=== PATIENT | female | born 1970 | race Caucasian/White ===

== ENCOUNTER 2020-05-14 20:49 | Inpatient (IN) | payer BC ==
[~2020-05-14] VITALS: Ht 165.1 cm; Wt 72.6 kg
[2020-05-14 20:55] VITALS: Ht 165.1 cm; Wt 72.6 kg
[2020-05-14 21:17] LABS: BASOPHIL % 1.1 % (0-2); PLATELET COUNT 344 x10^3mcL (130-400); RED CELL DISTRIBUTION WIDTH 14.4 % (11.5-14.5)
[2020-05-14 21:27] LABS: CALCIUM 8.2 mg/dL (8.5-10.1); CARBON DIOXIDE 24.8 mmol/L (21-32); CHLORIDE SERUM 95 mmol/L (98-107); GFR1 > 60 mL/min; GLUCOSE SERUM 105 mg/dL (74-106); POTASSIUM SERUM 3.6 mmol/L (3.5-5.1); SODIUM SERUM 128 mmol/L (136-145)
[2020-05-14 21:40] LABS: ALBUMIN 3.6 g/dL (3.4-5.0); ALKALINE PHOSPHATASE 62 U/L (46-116); ALT/SGPT 21 U/L (14-59); AST/SGOT 14 U/L (15-37); BILIRUBIN TOTAL 0.31 mg/dL (0.20-1.00); CHOLESTEROL 192 mg/dL (<200); TOTAL PROTEIN, SERUM 6.3 g/dL (6.4-8.2)
[2020-05-14] MEDS ORDERED: CYMBALTA60 M1 (22:30)
[2020-05-14] MEDS ORDERED: ROBAXIN-750750 MG PO (22:30)
[2020-05-14] MEDS ORDERED: NORCO 10-325 T1 EACH PO (22:31)
[2020-05-14] MEDS ORDERED: OXCARBAZEPINE300 M1 (22:32)
[2020-05-14] MEDS ORDERED: HORIZANT300 MG PO (22:32)
[2020-05-14] MEDS ORDERED: BUS5 (22:33)
[2020-05-14] MEDS ORDERED: AMITRIPTYLINE H25 MG (22:33)
[2020-05-14] MEDS ORDERED: TOPAMAX50 M1 (22:33)
[2020-05-15 00:21] LABS: FREE T4 0.77 ng/dL (0.76-1.46)
[2020-05-15 00:23] LABS: FREE THYROXINE INDEX 1.6 ug/dL (1.4-4.5); T4(THYROXINE) 4.5 ug/dL (4.7-13.3)
[2020-05-15 01:26] VITALS: BP 130/52
[2020-05-15 05:38] VITALS: BP 111/71
[2020-05-15 06:38] LABS: BASOPHIL % 0.6 % (0-2); PLATELET COUNT 323 x10^3mcL (130-400); RED CELL DISTRIBUTION WIDTH 14.5 % (11.5-14.5)
[2020-05-15 07:02] LABS: CALCIUM 8.3 mg/dL (8.5-10.1); CARBON DIOXIDE 25.1 mmol/L (21-32); CHLORIDE SERUM 98 mmol/L (98-107); CREATININE SERUM 0.7 mg/dL (0.6-1.0); GFR1 > 60 mL/min; GLUCOSE SERUM 90 mg/dL (74-106); POTASSIUM SERUM 3.6 mmol/L (3.5-5.1); SODIUM SERUM 130 mmol/L (136-145)
[2020-05-15 08:18] VITALS: BP 93/56
[2020-05-15 13:26] VITALS: BP 102/61
[2020-05-15 14:38] LABS: T3 TOTAL 0.54 ng/mL
[2020-05-15 15:07] LABS: UA SPECIFIC GRAVITY 1.015 (1.005-1.035); microscopic required? YES; urine erythrocyte NEGATIVE (NEGATIVE)
[2020-05-15 15:24] LABS: AMPHETAMINE QUAL UR NONE DETECTED (See below)
[2020-05-15 17:34] VITALS: BP 125/72
[2020-05-15 20:40] VITALS: BP 125/65
[2020-05-16 05:28] VITALS: BP 110/57
[2020-05-16 06:33] LABS: BASOPHIL % 0.8 % (0-2); PLATELET COUNT 364 x10^3mcL (130-400); RED CELL DISTRIBUTION WIDTH 14.5 % (11.5-14.5)
[2020-05-16 06:54] LABS: CALCIUM 8.6 mg/dL (8.5-10.1); CARBON DIOXIDE 24.9 mmol/L (21-32); CHLORIDE SERUM 104 mmol/L (98-107); CREATININE SERUM 0.7 mg/dL (0.6-1.0); GFR1 > 60 mL/min; GLUCOSE SERUM 93 mg/dL (74-106); MAGNESIUM 2.2 mg/dL (1.8-2.4); PHOSPHOROUS 3.4 mg/dL (2.5-4.9); POTASSIUM SERUM 3.5 mmol/L (3.5-5.1); SODIUM SERUM 135 mmol/L (136-145)
[2020-05-16 09:30] VITALS: BP 120/78
[2020-05-16 12:04] VITALS: BP 115/67
[2020-05-16 12:46] VITALS: BP 115/67
== END 2020-05-16 14:51 | disposition home or self-care (01) | DRG 312 ==
LOC: ED 20:49 → DU 22:29 → MU 05-15 15:52
PROVIDERS: Internal Medicine; Specialist; ADMIT Internal Medicine; ATTEND Internal Medicine
DX: R55 Syncope and collapse (principal); G90.50 Complex regional pain syndrome I, unspecified; E87.1 Hypo-osmolality and hyponatremia; G31.2 Degeneration of nervous system due to alcohol; F45.8 Other somatoform disorders; R40.2412 Glasgow coma scale score 13-15, at arrival to emergency department; Z20.828 Contact with and (suspected) exposure to other viral communicable diseases; G43.909 Migraine, unspecified, not intractable, without status migrainosus; F41.9 Anxiety disorder, unspecified; E83.51 Hypocalcemia; D64.9 Anemia, unspecified; E06.3 Autoimmune thyroiditis; F32.9 Major depressive disorder, single episode, unspecified; Z79.899 Other long term (current) drug therapy; Z88.8 Allergy status to other drugs, medicaments and biological substances; Z98.890 Other specified postprocedural states; Z79.891 Long term (current) use of opiate analgesic
CPT/HCPCS: 83880; 84439; C9113; G0378; G0480; J7030; Q0092